=== PATIENT | female | born 1935 | race Caucasian/White ===

== ENCOUNTER 2018-03-23 07:36 | Observation (INO) | payer MEDICARE, OTHER ==
[2018-03-11 15:51] LABS: BASOPHILS % 0.7 % (0.0-1.0); EOSINOPHILS # (AUTO) 0.2 (0.0-0.4); EOSINOPHILS % 2.5 % (0.0-6.0); HEMATOCRIT 44.5 % (34.2-44.1); HEMOGLOBIN 14.9 g/dL (12.0-16.0); LYMPHOCYTES # (AUTO) 1.8 (1.0-3.2); LYMPHOCYTES % 30.4 % (18.0-39.1); MEAN CORPUSCULAR HEMOGLOBIN 30.7 pg (28-32); MEAN CORPUSCULAR HGB CONC 33.5 g/dL (31-35); MEAN CORPUSCULAR VOLUME 91.6 fL (81-99); MONOCYTES # (AUTO) 0.5 (0.2-0.8); MONOCYTES % 7.6 % (4.4-11.3); NEUTROPHILS # (AUTO) 3.5 (2.1-6.9); NEUTROPHILS % 58.6 % (38.7-80.0); PLATELET COUNT 202 x10e3/uL (140-360); RED BLOOD COUNT 4.86 x10e6/uL (3.6-5.1)
--- NOTE | 2018-03-11 15:59 | Diagnostic Imaging Report ---
PROCEDURE: Frontal and lateral views of the chest. COMPARISON: None. INDICATIONS: PRE OP FINDINGS: Lines/tubes: None. Lungs: The lungs are well inflated and clear. There is no evidence of pneumonia or pulmonary edema. Pleura: There is no pleural effusion or pneumothorax. Heart and mediastinum: The heart and the mediastinum are normal. Bones: No acute bony abnormality. Multilevel spondylosis of the thoracic spine. IMPRESSION: 1. No acute cardiopulmonary disease. Dictated by: Mil Burch M.D. on 03/11/2018 at 16:01 Electronically approved by: Mil Burch M.D. on 03/11/2018 at 16:01
[2018-03-11 16:10] LABS: ALANINE AMINOTRANSFERASE 13 IU/L (0-55); ALBUMIN/GLOBULIN RATIO 1.4 (0.8-2.0); ALKALINE PHOSPHATASE 62 IU/L (40-150); ANION GAP 10.2 mmol/L (8-16); BLOOD UREA NITROGEN 19 mg/dL (7-26); BUN/CREATININE RATIO 22 (6-25); CALCIUM 9.5 mg/dL (8.4-10.2); CARBON DIOXIDE 29 mmol/L (22-29); CHLORIDE 102 mmol/L (98-107); CREATININE, SERUM 0.85 mg/dL (0.57-1.11); EST GLOMERULAR FILTRATION RATE > 60 ML/MIN (60-); GLUCOSE 92 mg/dL (74-118); POTASSIUM 4.2 mmol/L (3.5-5.1); SODIUM 137 mmol/L (136-145)
[~2018-03-23] VITALS: Ht 157.5 cm; Wt 54.4 kg
[~2018-03-23 07:36] MED LIST: ASPIRIN81 MG; TOPROL XL25 MG PO
[2018-03-23] MEDS ORDERED: CEFAZOLIN SOD 2 GM/D5W 50ML 50 ML IV ONE (07:39)
--- OUTSIDE RECORDS SUMMARY | 2018-03-23 07:39 | XMS REPORT ---
Author Author [facility] Address Unknown Phone Unavailable Care Team Providers Care Port Surveyor Name Role Phone LILIYA AN Unavailable Unavailable Problems This patient has no known problems. Allergies, Adverse Reactions, Alerts This patient has no known allergies or adverse reactions. Medications This patient has no known medications. Results Test Description Test Time Test Comments Text Results Atomic Results Result Comments CHEST 2 VIEWS [place] [address] Patient Name: TO CABALLERO MR #: [id number] : 1935 Age/Sex: 83/F Req #: [id number] Adm Physician: Ordered by: LILIYA AN MD Report #: [id number] Location: OR Room/Bed: Procedure: [id number] DX/CHEST 2 VIEWS Exam Date: 03/11/18 Exam Time: 1530 REPORT STATUS: Signed PROCEDURE: Frontal and lateral views of the chest. COMPARISON: None. INDICATIONS: PRE OP FINDINGS: Lines/tubes: None. Lungs: The lungs are well inflated and clear. There is no evidence of pneumonia or pulmonary edema. Pleura: There is no pleural effusion or pneumothorax. Heart and mediastinum: The heart and the mediastinum are normal. Bones: No acute bony abnormality. Multilevel spondylosis of the thoracic spine. IMPRESSION: 1. No acute cardiopulmonary disease. Dictated by: Jovan Brown M.D. on at 16:01 Electronically approved by: Jovan Brown M.D. on at 16:01 Dictated By: JOVAN BROWN MD 1601 Transcribed By: MARTA on 03/11/18 1601 COPY TO: LILIYA AN MD
[2018-03-23] MEDS ORDERED: CENTRUM COMPLE1 EACH (08:01)
[2018-03-23] MEDS ORDERED: BUPIVACAINE 0.5%/EPI 30 ML SDV INJ ONE (08:38)
[2018-03-23] MEDS ORDERED: BUPIVACAINE HCL 0.5% INJ 30 ML VIAL INJ ONE (08:38)
[2018-03-23] MEDS ORDERED: ESTROGENS CONJUGATED VAGINAL CR 45 GM TUBE PV ONE (08:38)
[2018-03-23] MEDS ORDERED: SIMETHICONE 80 MG CHEW PO PRN (10:45)
[2018-03-23] MEDS ORDERED: ACETAMINOPHEN 325 MG TAB PO PRN (10:45)
[2018-03-23] MEDS ORDERED: MEPERIDINE HCL INJ 25 MG/ML VIAL IV PRN (10:45)
[2018-03-23] MEDS ORDERED: HYDROCODONE/APAP 10MG-325MG TAB PO PRN (10:45)
[2018-03-23] MEDS ORDERED: PROMETHAZINE HCL (IM) 25 MG/ML VIAL IV PRN (10:45)
[2018-03-23] MEDS ORDERED: DIPHENHYDRAMINE HCL 25 MG CAP PO PRN (10:45)
[2018-03-23] MEDS ORDERED: DOCUSATE SODIUM 100 MG CAP PO PRN (10:45)
[2018-03-23 11:30] VITALS: BP 159/69
[2018-03-23] MEDS: LACTATED RINGER'S 1,000 ML IV SCH ×2 (12:09→20:10)
[2018-03-23] MEDS ORDERED: ONDANSETRON HCL 4 MG ORAL DISINTEGRATING TAB PO PRN (12:15)
[2018-03-23 16:00] VITALS: BP 145/65
[2018-03-23] MEDS ORDERED: LABETALOL HCL 5 MG/ML 20ML VIAL ONE (18:15)
[2018-03-23] MEDS ORDERED: LIDOCAINE HCL 2% LOCAL INJ 5 ML SDV VIAL INJ ONE (18:15)
[2018-03-23] MEDS ORDERED: GLYCOPYRROLATE INJ 1MG/ 5 ML SYR ONE (18:15)
[2018-03-23] MEDS ORDERED: NEOSTIGMINE 5 MG/5ML SYR ONE (18:15)
[2018-03-23] MEDS ORDERED: PROPOFOL IV EMULSION 10 MG/ML 20 ML VIAL ONE (18:15)
[2018-03-23] MEDS ORDERED: ROCURONIUM BROMIDE 10 MG/ML 5ML VIAL ONE (18:15)
[2018-03-23] MEDS ORDERED: DEXAMETHASONE SOD PHOS INJ 4 MG/ML VIAL ONE (18:15)
[2018-03-23] MEDS ORDERED: SEVOFLURANE INHAL SOLN 250 ML PEN BTL ONE (18:15)
[2018-03-23] MEDS ORDERED: ONDANSETRON HCL INJ 2 MG/ML VIAL ONE (18:15)
[2018-03-23 20:00] VITALS: BP 127/61
[2018-03-23] MEDS ORDERED: FENTANYL CITRATE/PF 100MCG/2 ML INJ ONE (21:33)
[2018-03-24] VITALS: BP 129/60
[2018-03-24 04:00] VITALS: BP 144/64
[2018-03-24] MEDS: LACTATED RINGER'S 1,000 ML IV SCH ×3 (05:00→18:25)
[2018-03-24 07:42] VITALS: BP 131/66
[2018-03-24] MEDS ORDERED: METOPROLOL SUCCINATE 25 MG TAB XL PO SCH (09:00)
[2018-03-24] MEDS ORDERED: ASPIRIN 81 MG CHEW TAB PO SCH (09:00)
--- NOTE | 2018-03-24 09:04 | Operative Report ---
DATE OF PROCEDURE: PREOPERATIVE DIAGNOSIS: Pelvic organ prolapse. POSTOPERATIVE DIAGNOSIS: Pelvic organ prolapse. PROCEDURES 1. Anterior and posterior parasacral spinal colpopexy. 2. Vaginal hysterectomy. NETWORK ANNOUNCER: LINDA Ho. COMPLICATIONS: None. ESTIMATED BLOOD LOSS: 50 mL. The patient was taken to the OR and general anesthesia was placed. She was prepped and draped in the normal sterile fashion. Placed in the dorsal lithotomy position. After examination under anesthesia, weighted speculum was placed inside the vagina. Cervix was grasped with a single-toothed tenaculum. Subvaginal tissue was injected with Marcaine with epinephrine of 0.25%. A circumferential vaginal skin incision was made with the scalpel. Subcutaneous tissue and the bladder was dissected off using curved Rodriguez scissors and gentle sweeps of the Ray-Rajinder wrapped at the end of the finger. Pouch of Alejandro was opened with Metzenbaum scissors. Weighted speculum was advanced in the pouch of Alejandro. Using the curved LigaSure, the uterosacral ligament was clamped, vessel occluded and the pedicle cut. The same was repeated on the other side. Then the uterine vessels were clamped with the same LigaSure instrument, vessel occluded and cut. The apex of the broad ligament was clamped in the same manner, vessel occluded and pedicle cut. The uterus was sent to pathology. Following this, 2 Allis clamps were applied at the vagina anteriorly of the incision. The bladder was dissected off the vagina using Metzenbaum scissors using the push-pull technique. The vagina was opened in the midline using the same instruments. The bladder and vagina were opened. Using the index finger, pelvic floor was perforated. The ischial spine and sacrospinous ligament was palpated on each side of the pelvis using the and needle bullock. The Vicryl suture was placed on the sacrospinous ligament 1 cm medial to the ischial spine, and the same was repeated on the other side. The other end was sewed to the vaginal vault. The pubocervical limbs on each side were approximated using Vicryl 0 sutures. Excess vaginal skin was trimmed off using curved Rodriguez scissors. The vagina was closed with interlocking sutures of Vicryl 0. The sacrospinous ligament sutures were tied. The vagina was lifted up. Following this, 2 Allis clamps were applied at the mucocutaneous junction posteriorly, and the skin in between was cut using curved Rodriguez scissors. The vagina was dissected off the perineum using Metzenbaum scissors. The vagina posterior was dissected off the rectum using Metzenbaum scissors using the push-pull technique. The vagina was opened using the same instruments. Two flaps of the vagina were dissected off the underlying rectum and levator ani. Following this, the levator ani muscles were approximated using Vicryl 2-0. Excess vaginal skin was trimmed out. The vagina was closed with interrupted running stitches of Vicryl 0. The patient had a vaginal pack. Tarango catheter was left inside with clear urine. The patient tolerated the procedure well. Lap, sponge and needle counts were correct times 2 at the end of the procedure. Job#: [id number] OR
[2018-03-24 11:41] VITALS: BP 134/63
[2018-03-24 16:02] VITALS: BP 156/67
== END 2018-03-24 19:00 | disposition home or self-care (01) ==
LOC: OR 07:36 → MED/SURG 11:20
PROVIDERS: ADMIT Obstetrics & Gynecology; ATTEND Obstetrics & Gynecology
DX: N81.89 Other female genital prolapse (principal)
CPT/HCPCS: 36415; 57282; 58260; 71046; 80053; 85025; 86850; 86900; 88307; 93005; G0378 ×2; J1100; J2001; J2405; J3490 ×2; J7120 ×2